=== PATIENT | female | born 1980 | race Caucasian/White ===

== ENCOUNTER 2025-04-05 14:15 | Emergency (ER) | payer OTHER, SELFPAY ==
[2025-04-05 14:44] VITALS: BP 180/103; PULSE 85; RESP 16; TEMP 36.9; O2SAT 97; BMI 35.8
--- NOTE | 2025-04-05 15:36 | ED.GENADULT ---
HPI - General Adult General Chief complaint: General Medical Stated complaint: bat exposure Time Seen by Provider: 04/05/25 14:45 Source: patient, family and RN notes reviewed Mode of arrival: ambulatory Limitations: no limitations History of Present Illness ED Provider: Erik [facility] narrative: 45-year-old female presents for evaluation of a bat exposure. The patient reports that she woke up around 3 in his morning with a bat in her room. She does not believe that the bat contacted her at all or bit her She can not rule out exposure, as that was in her room when she woke up She has no complaints Related Data Allergies Allergy/AdvReac Type Severity Reaction Status Date / Time No Known Allergies (No Known Allergy Verified 04/05/25 14:47 Allergies*) PMFSH Social History Social History Advance Directives: No Advance Directives Information Provided: No Physical Exam ED Vital Signs: Vital Signs - 24 hr 04/05/25 14:44 Temperature 98.4 F Pulse Rate 85 Respiratory Rate 16 Blood Pressure 180/103 H Pulse Oximetry 97 Oxygen Delivery Method Room Air BMI result Body Mass Index 35.8 Const General: healthy appearing, comfortable, no acute distress, alert and awake Nutritional Appearance: well nourished Orientation/consciousness: patient oriented x3 HENMT Head: Yes normocephalic and Yes atraumatic Eyes Eyelids: Yes eyelids normal Conjunctivae: conjunctivae normal Sclerae: sclerae normal Corneas: corneas normal Pupils: Equal, round and reactive pupils present EOM: EOMs intact bilaterally Neck Neck: Yes full ROM Resp Effort & Inspection: normal respiratory effort, able to speak in complete sentences and not labored Skin General skin exam: no rashes or lesions noted Neuro General: patient oriented x3 Cranial nerves: Yes Equal, round and reactive pupils present and Yes Bilaterally intact EOM present Cognition (Neuro): normal cognition Extrem Other: Moving all extremities well without any obvious deformities Medical Decision Making Medical Decision Making [facility] Narrative: 45-year-old female presents for evaluation of a bat exposure. The patient woke up around 3:00 a.m. with a bat in her room. Given that it is an unknown exposure because the patient is sleeping rabies vaccine is indicated and will be administered. Differential Diagnosis Differential Diagnoses: The differential diagnosis associated with the presentation includes Bat exposure Rabies exposure Rabies Anxiety Discharge Plan Discharge Clinical Impression: Exposure to bat without known bite Patient Disposition: Home, Self-Care Instructions: Rabies (ED) Additional Instructions: Rabies follow up with [place] [facility]: Upon discharge from the ED today, you will be contacted by the Infusion Center to schedule your follow up Rabies vaccines. You will need a total of 3 more injections. If for some reason you do not receive a call, please call the Infusion Center directly at [phone]. Follow up with your primary care provider after completion of the vaccine to have a titer drawn to ensure the vaccines effectiveness. Print Language: Bulgarian
[2025-04-05] MEDS: Rabies Vaccine (PCEC)/PF 1 ML VIAL IM (16:01)
[2025-04-05] MEDS: Rabies Immune Globulin/PF 900 UNIT/3 ML VIAL 1834 UNIT IM (16:04)
[2025-04-05 16:10] VITALS: BP 180/103; PULSE 85; RESP 16; TEMP 36.9; O2SAT 97
== END 2025-04-05 16:10 | disposition home or self-care (01) ==
PROVIDERS: Emergency Provider Emergency Medicine; PCP Internal Medicine
DX: Z20.3 Contact with and (suspected) exposure to rabies (principal); Z23 Encounter for immunization
CPT/HCPCS: 90375; 90471; 90675; 96372; 99284

== ENCOUNTER 2025-04-19 10:00 | Outpatient (RCR) | payer OTHER, SELFPAY ==
[2025-04-08 09:58] VITALS: BP 181/107; PULSE 80; RESP 16; TEMP 36.2; O2SAT 98
[2025-04-08] MEDS: Rabies Vaccine (PCEC)/PF 1 ML VIAL IM (10:09)
[2025-04-12 09:51] VITALS: BP 135/88; PULSE 84; RESP 16; TEMP 36.7; O2SAT 98
[2025-04-12] MEDS: Rabies Vaccine (PCEC)/PF 1 ML VIAL IM (09:52)
[2025-04-19 09:59] VITALS: BP 149/92; PULSE 77; RESP 18; TEMP 36.1; O2SAT 97
[2025-04-19] MEDS: Rabies Vaccine (PCEC)/PF 1 ML VIAL IM (10:03)
== END 2025-04-19 10:06 | disposition home or self-care (01) ==
LOC: HO.INF 10:00
PROVIDERS: Visit Provider Physician Assistant
DX: Z20.3 Contact with and (suspected) exposure to rabies (principal)
CPT/HCPCS: 90471; 90675